=== PATIENT | male | born 1965 | race African-American/Black ===

== ENCOUNTER → 2021-07-18 | Outpatient (CLI) | payer OTHER ==
[2021-07-18 09:26] LABS: BASO # 0.1 x10^3/uL (0.0-0.2); BASO % 1 % (0-3); EOS # 0.3 x10^3/uL (0.0-0.7); EOS % 4 % (0-3); HEMATOCRIT 39.5 % (39.0-53.0); HEMOGLOBIN 13.4 g/dL (13.0-17.5); LYMPH # 1.8 x10^3/uL (1.0-4.8); LYMPH % 31 % (24-48); MEAN CORPUSCULAR HEMOGLOBIN 33 pg (25-35); MEAN CORPUSCULAR HGB CONC 34 g/dL (31-37); MEAN CORPUSCULAR VOLUME 97 fL (79-100); MONO # 0.4 x10^3/uL (0.0-1.1); MONO % 6 % (0-9); NEUT # 3.4 x10^3uL (1.8-7.7); NEUT % 57 % (31-73); PLATELET COUNT 245 x10^3/uL (140-400); RED BLOOD COUNT 4.07 x10^6/uL (4.30-5.70); RED CELL DISTRIBUTION WIDTH 12.7 % (11.5-14.5); WHITE BLOOD COUNT 5.9 x10^3/uL (4.0-11.0)
[2021-07-18 10:19] LABS: ALBUMIN 3.9 g/dL (3.4-5.0); CALCIUM 9.1 mg/dL (8.5-10.1); GFR 94.2; POTASSIUM 3.9 mmol/L (3.5-5.1); TOTAL BILIRUBIN 0.7 mg/dL (0.2-1.0)
[2021-07-18 11:55] LABS: BACTERIA,URINE 0 /HPF (0-FEW); BILIRUBIN,URINE NEG (NEG); CLARITY,URINE CLEAR; COLOR,URINE YELLOW; GLUCOSE,URINE NEG (NEG); NITRITE,URINE NEG (NEG); RBC,URINE OCC /HPF (0-2); UROBILINOGEN,URINE 0.2 mg/dL (0.2 mg/dL); WBC,URINE OCC /HPF (0-4)
== END ==
LOC: LAB 07:54
PROVIDERS: ATTEND Family Medicine
DX: M51.27 Other intervertebral disc displacement, lumbosacral region (principal); Z20.822 Contact with and (suspected) exposure to COVID-19
CPT/HCPCS: 80053; 81001; 85025; 85610; 85730; 87641; U0003

== ENCOUNTER 2021-12-12 10:54 | Emergency (ER) | payer OTHER ==
[~2021-12-12] VITALS: Ht 177.8 cm; Wt 84.0 kg
[2021-12-12 11:22] VITALS: BP 121/74
--- NOTE | 2021-12-12 11:30 | PHYS DOC ---
Past History Additional Past Medical Histor: Chronic back pain Past Surgical History: Lumbar Laminectomy Alcohol Use: Rarely General Adult EDM: Chief Complaint: ANKLE PROBLEM HPI: HPI: Patient is a 56-year-old male who arrives ambulatory to the emergency room with complaint of left heel pain. Patient reports this really began yesterday evening and has gotten worse today. Patient describes a burning sensation of his heel as well as some weakness in the region of his left Achilles tendon. Patient reports he always has pain in this region as he has a history of chronic back pain and recently had what I believe is a laminectomy. Patient states every time he walks he feels a burning sensation in his heel. Despite this the patient denies any history of injury otherwise. He further denies rash, fever or swelling. Additionally denies any ankle involvement. He is awake, alert and nontoxic-appearing. Review of Systems: Review of Systems: Constitutional: Denies fever or chills Eyes: Denies change in visual acuity HENT: Denies nasal congestion or sore throat Respiratory: Denies cough or shortness of breath Cardiovascular: Denies chest pain or edema GI: Denies abdominal pain, nausea, vomiting, bloody stools or diarrhea : Denies dysuria Musculoskeletal: Reports extremity pain. Denies new back pain or joint pain. Integument: Denies rash Neurologic: Denies headache, focal weakness or sensory changes Endocrine: Denies polyuria or polydipsia Lymphatic: Denies swollen glands Psychiatric: Denies depression or anxiety Physical Exam: PE: Constitutional: Well developed, well nourished, no acute distress, non-toxic appearance. [] HENT: Normocephalic, atraumatic, bilateral external ears normal, oropharynx mois t, no oral exudates, nose normal. [] Eyes: PERRLA, EOMI, conjunctiva normal, no discharge. [] Neck: Normal range of motion, no tenderness, supple, no stridor. [] Cardiovascular:Heart rate regular rhythm, no murmur [] Lungs & Thorax: Bilateral breath sounds clear to auscultation [] Abdomen: Bowel sounds normal, soft, no tenderness, no masses, no pulsatile masses. [] Skin: Warm, dry, no erythema, no rash. [] Back: No tenderness, no CVA tenderness. [] Extremities: Tenderness to palpation of the left calcaneus. No cyanosis, no clubbing, ROM intact, no edema. [] Neurologic: Alert and oriented X 3, normal motor function, normal sensory function, no focal deficits noted. [] Psychologic: Affect normal, judgement normal, mood normal. [] Current Patient Data: Vital Signs: Vital Signs Date Time Temp Pulse Resp B/P (MAP) Pulse Ox O2 Delivery O2 Flow Rate FiO2 12/12/21 11:22 98.2 73 16 121/74 (90) 97 Room Air EKG: EKG: [] Radiology/Procedures: Radiology/Procedures: [][address] [address] IMAGING REPORT Signed PATIENT: LUKE VAIL ACCOUNT: [id number] : 1965 LOCATION: ER AGE: 56 SEX: M EXAM STATUS: REG ER ORD. PHYSICIAN: BENSON RICHMOND DO REASON: Heel pain.swelling 4th toe PROCEDURE: FOOT LEFT 3V EXAM: Left foot, 3 views. HISTORY: Pain and swelling. COMPARISON: None. FINDINGS: 3 views of the left foot are obtained. There is no fracture, dislocation or subluxation. There is no foreign body or suspicious osseous le debra. IMPRESSION: No acute osseous finding. Electronically signed by: Michelle Burroughs MD (12/12/2021 11:28 AM) [id number] DICTATED AND SIGNED BY: MICHELLE BURROUGHS MD DATE: 12/12/21 1127 CC: BETHANY HINDS DO; BENSON RICHMOND DO ~ Heart Score: C/O Chest Pain: No Risk Factors: Risk Factors: DM, Current or recent (<one month) smoker, HTN, HLP, family history of CAD, obesity. Risk Scores: Score 0 - 3: 2.5% MACE over next 6 weeks - Discharge Home Score 4 - 6: 20.3% MACE over next 6 weeks - Admit for Clinical Observation Score 7 - 10: 72.7% MACE over next 6 weeks - Early Invasive Strategies Course & Med Decision Making: Course & Med Decision Making Pertinent Labs and Imaging studies reviewed. The patient was escorted to fast- track room a and after history and physical examination the patient had imaging performed of his left foot. Imaging was returned as normal without any acute pathological injury or change. I did speak with the patient a great deal he does have a history of Planter fasciitis. Additionally he reports he has had this pain prior to his laminectomy as well as since having had this. Patient has 2 independent processes occurring which may contribute to his complaint. 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 The patient understands and has agreed to do so. He is nontoxic-appearing and stable for discharge. [] Dragon Disclaimer: Dragon Disclaimer: This electronic medical record was generated, in whole or in part, using a voice recognition dictation system. Departure Departure: Disposition: HOME / SELF CARE / HOMELESS Condition: STABLE Referrals: BETHANY HINDS DO (PCP) Patient Instructions: Lumbosacral Radiculopathy, Plantar Fasciitis Additional Instructions: Follow-up with primary care physician if not improved in 1 week. Scripts Methylprednisolone (MEDROL) 4 Mg Tab.ds.pk 1 PKG PO UD for pain for 7 Days, #1 PKG Prov: BENSON RICHMOND DO 12/12/21 BENSON RICHMOND DO December 12, 2021 11:30
--- NOTE | 2021-12-12 11:30 | RAD ---
EXAM: Left foot, 3 views. HISTORY: Pain and swelling. COMPARISON: None. FINDINGS: 3 views of the left foot are obtained. There is no fracture, dislocation or subluxation. Th ere is no foreign body or suspicious osseous lesion. IMPRESSION: No acute osseous finding. Electronically signed by: Michelle Chaudhary MD (12/12/2021 11:28 AM) [id number]
[2021-12-12] MEDS ORDERED: METH4TAB2 PO (11:44)
== END 2021-12-12 11:58 | disposition home or self-care (01) ==
LOC: ER 10:54
DX: M79.672 Pain in left foot (principal); R20.8 Other disturbances of skin sensation; R53.1 Weakness; G89.29 Other chronic pain
CPT/HCPCS: 73630; 99283